=== PATIENT | male | born 1965 | race Caucasian/White ===

== ENCOUNTER 2016-07-08 14:14 | Emergency (ER) | payer OTHER ==
[2016-07-08] MEDS ORDERED: LIDOCAINE 1 % AMP 5 ML (SUTURES) SUBCUT STA (14:20)
[2016-07-08] MEDS ORDERED: TENIVAC IM ONE (14:20)
[2016-07-08 14:22] VITALS: BP 144/96; TEMP 97.4; BMI 27.2
--- NOTE | 2016-07-08 14:39 | ED.PDOC ---
General ED Provider: Dr. ELI MILTON Chief Complaint: Finger Laceration Stated Complaint: laceration Time Seen by Physician: 14:18 Mode of Arrival: Walk-In Information Source: Patient Primary Care Provider: MERT MAURICIO Nursing and Triage Documentation Reviewed and Agree: Yes Musculoskeletal Complaint Exam - Upper Extremity Complaint/Exam Location of Pain: Reports: Left (hand laceration base of the left thumb) Mechanism of Injury: Reports: Trauma Onset/Duration: 1 hr Symptoms Are: Still present Timing: Constant Episodes Lasting: Minutes Initial Severity: Mild Current Severity: Mild Location: Reports: Discrete Character: Reports: Aching Aggravating: Reports: None Alleviating: Reports: None Non-Orthopedic Risk Factors: Reports: None DVT Risk Factors: Reports: None Differential Diagnoses: Laceration Review of Systems - Review Of Systems Constitutional: Reports: No symptoms Eyes: Reports: No symptoms Ears, Nose, Mouth, Throat: Reports: No symptoms Respiratory: Reports: No symptoms Cardiac: Reports: No symptoms GI: Reports: No symptoms : Reports: No symptoms Musculoskeletal: Reports: No symptoms Skin: Reports: Other (0.4 cm laceration base of left thumb) Neurological: Reports: No symptoms Endocrine: Reports: No symptoms Hematologic/Lymphatic: Reports: No symptoms All Other Systems: Reviewed and Negative Past Medical History - Past Medical History Endocrine: Reports: None Cardiovascular: Reports: Hypertension Respiratory: Reports: None Hematological: Reports: None Gastrointestinal: Reports: None Genitourinary: Reports: None Neuro/Psych: Reports: None Musculoskeletal: Reports: None Cancer: Reports: None Other Pertinent Past Medical History: APPENDECTOMY AND HERNIN - Surgical History General Surgical History: Reports: Appendectomy, Hernia Repair - Family History Family History: Reports: Unknown - Social History Smoking Status: Former smoker Hx Substance Use: No Alcohol Screening: None - Immunizations Tetanus Shot up to Date: Yes (less than 1 year) Physical Exam - Physical Exam Appearance: Well-appearing, No pain distress, Well-nourished Eyes: LETICIA, EOMI, Conjunctiva clear ENT: Ears normal, Nose normal, Oropharynx normal Respiratory: Airway patent, Breath sounds clear, Breath sounds equal, Respirations nonlabored Cardiovascular: RRR, Pulses normal, No rub, No murmur GI/: Soft, Nontender, No masses, Bowel sounds normal, No Organomegaly Musculoskeletal: Normal strength, ROM intact, No edema, No calf tenderness Skin: Warm, Dry Neurological: Sensation intact, Motor intact, Reflexes intact, Cranial nerves intact, Alert, Oriented Psychiatric: Affect appropriate, Mood appropriate Procedures - Laceration/Wound Repair No standard instances Wound Description: Linear Wound Length (cm): 0.3 cm Wound Width: 2mm Wound Depth: 1mm Wound Explored: Clean Wound Irrigated: No Wound Prep: Saline, Betadine Anesthesia: Lidocaine Wound Debrided: Minimal Undermining: Minimal Suture Size and Type: 3 prolene Number of Sutures: 3 Number of Alex: 0 Sterile Dressing Applied?: No Splint Applied?: No Sling Applied?: No Critical Care Note - Critical Care Note Total Time (mins): 0 Course - Course Orders, Labs, Meds: Orders Category Date Time Status Lidocaine HCl/Pf [Lidocaine 1 % Amp 5 ml (Sutures)] MEDS 07/08/16 14:20 Discontinued 5 ml SUBCUT ONCE STA Medications Discontinued Medications Generic Name Dose Route Start Last Admin Trade Name Freq PRN Reason Stop Dose Admin Lidocaine HCl 5 ml 07/08/16 14:20 Lidocaine 1 % Amp 5 Ml (Sutures) SUBCUT 07/08/16 14:21 ONCE STA Vital Signs: Temp Pulse Resp BP Pulse Ox 07/08/16 14:15 97.4 F L 87 20 144/96 H 97 Departure - Departure Time of Disposition: 14:40 Disposition: HOME SELF-CARE Discharge Problem: Laceration of finger Instructions: Laceration (ED) Condition: Good Pt referred to PMD for follow-up: No Allergies/Adverse Reactions: Allergies diphenhydramine HCl [From Benadryl] Adverse Reaction (Verified 03/24/16 06:36) Home Medications: Ambulatory Orders Metoprolol Tartrate [Lopressor] 25 mg PO DAILY #60 tablet 05/29/15
== END 2016-07-08 15:03 | disposition home or self-care (01) ==
LOC: ED 14:14
DX: S61.012A Laceration without foreign body of left thumb without damage to nail, initial encounter (principal); W45.8XXA Other foreign body or object entering through skin, initial encounter
CPT/HCPCS: 99283

== ENCOUNTER 2016-09-11 07:52 | Emergency (ER) | payer OTHER ==
[2016-09-11 07:58] VITALS: BP 154/102; TEMP 97.4; BMI 26.1
[2016-09-11] MEDS ORDERED: ZESTRIL PO STA (08:06)
[2016-09-11 08:17] LABS: BASOPHILS % (AUTO) 0.4 % (0.0-3.0); EOSINOPHILS # (AUTO) 0.1 K/ul (0.0-0.7); EOSINOPHILS % (AUTO) 1.8 % (0.0-7.0); HEMATOCRIT 42.4 % (42.0-52.0); HEMOGLOBIN 14.8 g/dl (14.0-18.0); IMMATURE GRANULOCYTE % (AUTO) 0.2 % (0.0-5.0); LYMPHOCYTES # (AUTO) 1.6 K/uL (0.60-3.4); LYMPHOCYTES % (AUTO) 31.9 (10.0-50.0); MEAN CORPUSCULAR HEMOGLOBIN 29.7 pg (27.0-31.0); MEAN CORPUSCULAR HGB CONC 34.9 (31.8-35.4); MEAN CORPUSCULAR VOLUME 85.1 fl (80.0-94.0); MONOCYTES # (AUTO) 0.3 K/uL (0.4-2.0); MONOCYTES % (AUTO) 6.9 (0-10); NEUTROPHILS # (AUTO) 2.9 K/ul (2.0-6.9); NEUTROPHILS % (AUTO) 58.8; PLATELET COUNT 218 10^3/uL (140-440); RED BLOOD COUNT 4.98 10^6/ul (4.70-6.10); WHITE BLOOD COUNT 4.95 K/ul (4.2-10.2)
[2016-09-11 08:55] LABS: ALANINE AMINOTRANSFERASE 26 U/L (12-78); ALBUMIN/GLOBULIN RATIO 1.33; ALKALINE PHOSPHATASE 50 U/L (50-136); ANION GAP 11.9; ASPARTATE AMINO TRANSFERASE 22 U/L (15-37); BILIRUBIN,TOTAL 0.41 mg/dL (0.00-1.20); BLOOD UREA NITROGEN 12 mg/dL (7-18); BUN/CREATININE RATIO 12.76; CARBON DIOXIDE 24 mmol/L (21-32); CHLORIDE 107 mmol/L (98-107); CREATINE KINASE 147 U/L; CREATININE 0.94 mg/dL (0.60-1.10); GLUCOSE 98 mg/dL (70-100); POTASSIUM 3.9 mmol/L (3.5-5.1); SODIUM 139 mmol/L (136-145)
[2016-09-11 08:56] LABS: CREATINE KINASE MB 1.8 ng/ml (0.0-3.6)
--- NOTE | 2016-09-11 09:10 | ED.PDOC ---
General ED Provider: Dr. ELI MILTON Chief Complaint: Chest Pain Stated Complaint: chest pain Time Seen by Physician: 08:00 Mode of Arrival: Walk-In Information Source: Patient Exam Limitations: No limitations Primary Care Provider: MERT MAURICIO Nursing and Triage Documentation Reviewed and Agree: No Cardiovascular Complaint Exam - Chest Pain Complaint/Exam Onset: Sudden Duration: 1day ago Symptoms Are: Still present (subtle pain) Timing: Constant Length of Chest Pain Episodes: 1day Initial Severity: Moderate Current Severity: Mild Location: Reports: Midsternal Pain Radiates: Reports: None Character: Reports: Aching Aggravating: Reports: None Alleviating: Reports: None Associated Signs and Symptoms: Denies: Diaphoresis, Nausea, Vomiting, Fever, Palpitations, Cough, Hemoptysis, Back pain, Abdominal pain, Dizziness, Short of air, Calf pain, Calf swelling Related History: Reports: Similar episode History of Healthcare-Acquired Pneumonia: Reports: No AMI/ACS Risk Factors: Reports: Hypertension TAD Risk Factors: Reports: Hypertension Pulmonary Embolism Risk Factors: Reports: None Prior Care for this Complaint: No Recent Stress Test: No Recent Echo/LV Function: No JVD Present: No Subcutaneous Emphysema Present: No Diminshed Breath Sounds: No Reproducible Chest Wall Pain: No Bilateral Pulses Present: No Unequal Pulses Noted: No If Risk Factors for AMI/ACS Consider: EKG, Cardiac Enzymes Differential Diagnoses: Stable Angina Quality Indicators For Acute CA or Cardiac Chest Pain: EKG in 10min. Review of Systems - Review Of Systems Constitutional: Reports: No symptoms Eyes: Reports: No symptoms Ears, Nose, Mouth, Throat: Reports: No symptoms Respiratory: Reports: No symptoms Cardiac: Reports: Chest pain GI: Reports: No symptoms : Reports: No symptoms Musculoskeletal: Reports: No symptoms Skin: Reports: No symptoms Neurological: Reports: No symptoms Endocrine: Reports: No symptoms Hematologic/Lymphatic: Reports: No symptoms All Other Systems: Reviewed and Negative Past Medical History - Past Medical History Endocrine: Reports: None Cardiovascular: Reports: Hypertension Respiratory: Reports: None Hematological: Reports: None Gastrointestinal: Reports: None Genitourinary: Reports: None Neuro/Psych: Reports: None Musculoskeletal: Reports: None Cancer: Reports: None Other Pertinent Past Medical History: APPENDECTOMY AND HERNIN - Surgical History General Surgical History: Reports: Appendectomy, Hernia Repair - Family History Family History: Reports: Unknown - Social History Smoking Status: Former smoker Hx Substance Use: No Alcohol Screening: None Physical Exam - Physical Exam Appearance: Well-appearing, No pain distress, Well-nourished Eyes: LETICIA, EOMI, Conjunctiva clear ENT: Ears normal, Nose normal, Oropharynx normal Respiratory: Airway patent, Breath sounds clear, Breath sounds equal, Respirations nonlabored Cardiovascular: RRR, Pulses normal, No rub, No murmur GI/: Soft, Nontender, No masses, Bowel sounds normal, No Organomegaly Musculoskeletal: Normal strength, ROM intact, No edema, No calf tenderness Skin: Warm, Dry, Normal color Neurological: Sensation intact, Motor intact, Reflexes intact, Cranial nerves intact, Alert, Oriented Psychiatric: Affect appropriate, Mood appropriate 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 Rhythm: Sinus Ectopy: None - EKG Interpretation Rate: Normal Rhythm: Sinus Ectopy: None [place]: NL ST Segment: Normal Physician Notification - Case Discussed Physician Notified: PMD Time of Notification: 10:23 (SEND TO OFFICE ) Critical Care Note - Critical Care Note Total Time (mins): 0 Course - Course Hematology/Chemistry: 09/11/16 08:10 09/11/16 08:10 Orders, Labs, Meds: Lab Review 09/11/16 08:10 WBC 4.95 RBC 4.98 Hgb 14.8 Hct 42.4 MCV 85.1 MCH 29.7 MCHC 34.9 RDW Coeff of Zayra 12.7 Plt Count 218 Immature Gran % (Auto) 0.2 Neut % (Auto) 58.8 Lymph % (Auto) 31.9 [place] % (Auto) 6.9 Eos % (Auto) 1.8 Baso % (Auto) 0.4 Immature Gran # (Auto) 0.0 Neut # 2.9 Lymph # 1.6 [place] # 0.3 L Eos # 0.1 Baso # 0.0 Sodium 139 Potassium 3.9 Chloride 107 Carbon Dioxide 24 Anion Gap 11.9 BUN 12 Creatinine 0.94 Estimated GFR (MDRD) 85.00 BUN/Creatinine Ratio 12.76 Glucose 98 Calcium 9.0 Total Bilirubin 0.41 AST 22 ALT 26 Alkaline Phosphatase 50 Total Creatine Kinase 147 CK-MB (CK-2) 1.8 CK-MB (CK-2) % 1.25953 Troponin I < 0.0100 Total Protein 7.0 Albumin 4.0 Globulin 3.0 Albumin/Globulin Ratio 1.33 Orders Category Date Time Status EKG-(ED ONLY) Stat CARDIO 09/11/16 08:02 Completed EKG-(ED ONLY) Stat CARDIO 09/11/16 09:15 Completed NPO REMINDER: IMAGING ONCE CARE 09/11/16 08:02 Completed ED IV/MEDIPORT/POWERPORT .ONCE EMERGENCY 09/11/16 08:01 Active CBC W/ AUTO DIFF Stat LAB 09/11/16 08:10 Completed COMPREHENSIVE METABOLIC PANEL Stat LAB 09/11/16 08:10 Completed CREATINE KINASE Stat LAB 09/11/16 08:10 Completed TROPONIN I Stat LAB 09/11/16 08:10 Completed 0.9 % Sodium Chloride [Saline Flush] MEDS 09/11/16 08:01 Active 1 syr IVF PRN PRN Lisinopril [Zestril] MEDS 09/11/16 08:06 Discontinued 20 mg PO ONCE STA CT CHEST PE PROTOCOL Stat RADS 09/11/16 08:01 Ordered Medications Generic Name Dose Route Start Last Admin Trade Name Freq PRN Reason Stop Dose Admin Sodium Chloride 1 syr 09/11/16 08:01 09/11/16 08:31 Saline Flush IVF 1 syr PRN PRN Administration To flush IV Discontinued Medications Generic Name Dose Route Start Last Admin Trade Name Freq PRN Reason Stop Dose Admin Lisinopril 20 mg 09/11/16 08:06 09/11/16 09:10 Zestril PO 09/11/16 08:07 Not Given ONCE STA Vital Signs: Temp Pulse Resp BP Pulse Ox 09/11/16 07:53 97.4 F L 71 20 154/102 H 98 JESSIE Risk Score JESSIE Risk Score: Risk Score Odds of by 30D 0 0.1 (0.1-0.2) 1 0.3 (0.2-0.3) 2 0.4 (0.3-0.5) 3 0.7 (0.6-0.9) 4 1.2 (1.0-1.5) 5 2.2 (1.9-2.6) 6 3.0 (2.5-3.6) 7 4.8 (3.8-6.1) Departure - Departure Time of Disposition: 09:13 Disposition: HOME SELF-CARE Discharge Problem: Chest pain Condition: Good Pt referred to PMD for follow-up: Yes Allergies/Adverse Reactions: Allergies diphenhydramine HCl [From Benadryl] Adverse Reaction (Verified 09/11/16 08:00) Home Medications: Ambulatory Orders Metoprolol Tartrate [Lopressor] 25 mg PO DAILY #60 tablet 05/29/15
--- NOTE | 2016-09-11 10:06 | CT ---
EXAM: CTA CHEST (PE PROTOCOL) HISTORY: Pleuritic chest pain TECHNIQUE: CTA with intravenous contrast. Multiplanar images were provided with 3-D reconstruction s. 125 mL Omnipaque. COMPARISON: None FINDINGS: No pulmonary arterial filling defect. Thoracic aorta within normal limits. Normal heart size with no pericardial effusion. A few nonspecific sub-centimeter hilar lymph nodes are noted. The lungs reveal no consolidated pneumonia. There is no vascular congestion, central interstitial e montse, pneumothorax or pleural fluid. No pleural thickening is seen. The bones reveal no acute abnormality. IMPRESSION: 1. No pulmonary arterial thromboembolism. 2. No consolidated pneumonia or vascular congestion. No pleural fluid or thickening.
== END 2016-09-11 10:45 | disposition home or self-care (01) ==
LOC: ED 07:52
DX: R07.9 Chest pain, unspecified (principal); I10 Essential (primary) hypertension; Z79.899 Other long term (current) drug therapy; R06.02 Shortness of breath
CPT/HCPCS: 36415; 80053; 82550; 82553; 84484; 85025; 93005; 93010; 99283

== ENCOUNTER 2016-09-11 14:40 | Outpatient (CLI) | payer OTHER ==
[2016-09-11 07:58] VITALS: BMI 26.1
--- NOTE | 2016-09-12 12:24 | STRESSECHO ---
Date of Test: 09/11/16 Reason for Exam: CHEST PAIN, SOB, HTN Ordering Physician: MERT MAURICIO Current Medications: LOPRESSOR Physical Findings: S1, S2, NO S3 Resting EKG: SINUS RHYTHM, NO ACUTE CHANGES Target Heart Rate: 144/170 STAGE MPH/GRADE HEART RATE BPM BLOOD PRESSURE mmhg RHYTHM S-T SEGMENT +/- UP DOWN SYMPTOMS,COMMENTS At Rest 76 132/84 SR X NONE 1 1.7/10% 100 146/90 SR X NONE 2 2.5/12% 110 150/99 SR X NONE 3 3.4/14% 4 4.2/16% 5 5.0/18% Immediately after 128 168/90 SR X FATIGUE Durations of Exercise: 8:00 Maximum Heart Rate Reached: 128 Reason for Termination: FATIGUE 4 MIN POST EXERCISE: HR, 80 BPM BP 138/96 MMHG, SR, +/- INTERPRETATION: 98% OXYGEN SATURATION ON ROOM AIR WITH EXERCISE METS 10.1 1. TEST NEGATIVE FOR ISCHEMIC ST-T WAVE CHANGES 2. NO CHEST PAIN OR CHEST DISCOMFORT 3. NO ARRHYTHMIAS 4. BLOOD PRESSURE RESPONSE: BORDERLINE HYPERTENSION WITH EXERCISE NORMAL LEFT VENTRICULAR CONTRACTILITY--RESTING AND POST EXERCISE MTDD
--- NOTE | 2016-09-12 12:27 | ECHOSTRESS ---
Date of Exam: 09/11/16 Ordering Physician: MERT MAURICIO Reason for Echo: CHEST PAIN, STRESS TEST--NO ISCHEMIA M-Mode Normal Adult Results LV Dimensions Normal Adult Results AoV Opening excursions >1.6 LVEDD-base- 3.5-5.8 Ao root dimensions 2.0-3.7 LVESD-base- 3.1-4.6 L. Atrium dimensions 1.9-3.8 Post. Wall thickness 0.8-1.1 IV septum (thickness) 0.7-1.2 Post. Wall excursion 0.72-1.3 Septal motion Systolic motion R. Ventricular cavity 1.5-2.0 LVEF 60% Paradoxical septal wall motion 2-D: NORMAL LEFT VENTRICULAR CONTRACTILITY--RESTING AND POST EXERCISE M-MODE: MV: AV: TV: PV: CHAMBER SIZE: WALL MOTION: NORMAL LEFT VENTRICULAR CONTRACTILITY--RESTING AND POST EXERCISE PERICARDIUM: INTERPRETATION: 1. NORMAL LEFT VENTRICULAR CONTRACTILITY--RESTING AND POST EXERCISE MTDD
--- NOTE | 2016-09-12 12:56 | ECHO2D ---
Date of Exam: 09/11/16 Ordering Physician: MERT MAURICIO Reason for Echo: CHEST PAIN, SOB, HTN M-Mode Normal Adult Results LV Dimensions Normal Adult Results AoV Opening excursions >1.6 >1.6 LVEDD-base- 3.5-5.8 4.5 Ao root dimensions 2.0-3.7 3.3 LVESD-base- 3.1-4.6 L. Atrium dimensions 1.9-3.8 3.8 Post. Wall thickness 0.8-1.1 1.1 IV septum (thickness) 0.7-1.2 1.2 Post. Wall excursion 0.72-1.3 NORMAL Septal motion NORMAL Systolic motion R. Ventricular cavity 1.5-2.0 NORMAL LVEF 60% 53% Paradoxical septal wall motion NORMAL 2-D : 2-D M Mode Echocardiogram was performed using apical four chamber and left parasternal long and short axis views. Mitral, tricuspid and aortic valves appear to be normal. Contractility of the left ventricle seems to be normal, so is the cavity size. Left atrial cavity size and aortic root appear to be normal. There is no pericardial effusion. There is no thrombus noted in the left ventricular or left aortic cavity. No mitral valve prolapse noted. M-MODE: MV: NORMAL AV: NORMAL TV: NORMAL PV: CHAMBER SIZE: NORMAL WALL MOTION: NORMAL PERICARDIUM: NORMAL INTERPRETATION: 1. BORDERLINE LEFT VENTRICULAR HYPERTROPHY 2. NORMAL VALVES 3. NORMAL LEFT VENTRICULAR CONTRACTILITY MTDD
== END 2016-09-11 14:41 | disposition home or self-care (01) ==
LOC: CAR 14:40
PROVIDERS: ATTEND Internal Medicine
DX: R07.9 Chest pain, unspecified (principal); R06.02 Shortness of breath

== ENCOUNTER 2018-03-04 14:38 | Emergency (ER) | payer OTHER ==
[2018-03-04 14:43] VITALS: BP 148/95; TEMP 97.3; BMI 27.3
[2018-03-04] MEDS ORDERED: LIDOCAINE HCL 1% SDV SUBCUT STA (15:02)
--- NOTE | 2018-03-04 15:03 | ED.PDOC ---
General ED Provider: Dr. MERT CARMONA Chief Complaint: Laceration Stated Complaint: Patient states he Cut his Rt Thigh with a razor knife while cutting co-base. Time Seen by Physician: 14:50 Mode of Arrival: Walk-In Information Source: Patient Exam Limitations: No limitations Primary Care Provider: MERT MAURICIO Nursing and Triage Documentation Reviewed and Agree: Yes Does patient meet sepsis criteria?: No System Inflammatory Response Syndrome: Not Applicable Sepsis Protocol: For patient's 13 years and over: Temp is 96.8 and below OR 101 and greater Pulse >90 BPM Resp >20/minute Acutely Altered Mental Status Are patient's symptoms suggestive of a new infection, such as: -Pneumonia -Skin, Soft Tissue -Endocarditis -UTI -Bone, Joint Infection -Implantable Device -Acute Abdominal Infection -Wound Infection -Meningitis -Blood Stream Catheter Infection -Unknown Trauma/Injury Complaint Exam - Trauma Complaint/Exam Location of Pain or Injury: Reports: RLE (Rt Anterior Thigh) Mechanism of Injury: Reports: Incised Onset/Duration: 1 hr Symptoms Are: Still present Timing of Treatment: Immediate Initial Severity: Mild Current Severity: Mild Character: Reports: Burning, Sharp Aggravating: Reports: Weight-bearing Alleviating: Reports: None Associated Signs and Symptoms: Reports: Bleeding. Denies: LOC, Confusion, Memory loss, Lethargy, Vomiting, Bruising, Swelling, Extremity disuse, Painful respiration, Hoarseness, Dysphagia, Hemoptysis, Significant blood loss Related History: Denies: Similar episode Penetrating Injury Risk Factors: Reports: None Trauma Findings: Absent: Weak pulses ( 2 cm laceration rt thigh) Skin Findings: Present: Tenderness, Laceration Review of Systems - Review Of Systems Constitutional: Reports: No symptoms Eyes: Reports: No symptoms Ears, Nose, Mouth, Throat: Reports: No symptoms Respiratory: Reports: No symptoms Cardiac: Reports: No symptoms GI: Reports: No symptoms : Reports: No symptoms Musculoskeletal: Reports: No symptoms Skin: Reports: No symptoms, Other (laceraton rt thigh) Neurological: Reports: No symptoms Endocrine: Reports: No symptoms Hematologic/Lymphatic: Reports: No symptoms All Other Systems: Reviewed and Negative Past Medical History - Past Medical History Endocrine: Reports: None Cardiovascular: Reports: Hypertension Respiratory: Reports: None Hematological: Reports: None Gastrointestinal: Reports: None Genitourinary: Reports: None Neuro/Psych: Reports: None Musculoskeletal: Reports: None Cancer: Reports: None Other Pertinent Past Medical History: APPENDECTOMY AND HERNIN - Surgical History General Surgical History: Reports: Appendectomy, Hernia Repair - Family History Family History: Reports: Unknown - Social History Smoking Status: Former smoker Hx Substance Use: No Alcohol Screening: None Physical Exam - Physical Exam Appearance: Well-appearing, No pain distress, Well-nourished Eyes: LETICIA, EOMI, Conjunctiva clear ENT: Ears normal, Nose normal, Oropharynx normal Respiratory: Airway patent, Breath sounds clear, Breath sounds equal, Respirations nonlabored Cardiovascular: RRR, Pulses normal, No rub, No murmur GI/: Soft, Nontender, No masses, Bowel sounds normal, No Organomegaly Musculoskeletal: Normal strength, ROM intact, No edema, No calf tenderness Skin: Warm (laceraton rt thigh, bleeding controlled), Dry, Normal color Neurological: Sensation intact, Motor intact, Reflexes intact, Cranial nerves intact, Alert, Oriented Psychiatric: Affect appropriate, Mood appropriate Procedures - Laceration/Wound Repair Rt Thigh Wound Description: Linear Wound Length (cm): 2 Wound Width: 5mm Wound Depth: subcut Wound Explored: Clean Wound Irrigated: Yes Wound Prep: Hibiclens, Betadine Anesthesia: Lidocaine Wound Repaired With: Sutures Suture Size and Type: 3-0 nylon Number of Sutures: 2 Layer Closure?: No Sterile Dressing Applied?: Yes Critical Care Note - Critical Care Note Total Time (mins): 30 Course - Course Orders, Labs, Meds: Orders Category Date Time Status Lidocaine HCl/Pf [Lidocaine HCl 1% Sdv] MEDS 03/04/18 15:02 Discontinued 5 ml SUBCUT ONCE STA Medications Discontinued Medications Generic Name Dose Route Start Last Admin Trade Name Lc PRN Reason Stop Dose Admin Lidocaine HCl 5 ml 03/04/18 15:02 03/04/18 15:23 Lidocaine Hcl 1% Sdv SUBCUT 03/04/18 15:03 5 ml ONCE STA Administration Vital Signs: Temp Pulse Resp BP Pulse Ox 03/04/18 14:38 97.3 F L 87 16 148/95 H 97 Departure - Departure Time of Disposition: 15:20 Disposition: HOME SELF-CARE Discharge Problem: Laceration of thigh without complication Instructions: Care For Your Stitches (ED), Laceration (ED) Condition: Good Pt referred to PMD for follow-up: Yes (1 week) IPMP verified?: No Additional Instructions: Off work today Wound care Take tylenol for pain as needed Sutures out 7-10 days Prescriptions: Cephalexin [Keflex] 500 mg PO BID #14 capsule Allergies/Adverse Reactions: Allergies diphenhydramine HCl [From Benadryl] Adverse Reaction (Verified 09/11/16 08:00) hydromorphone [From Dilaudid] Adverse Reaction (Verified 03/04/18 14:43) Home Medications: Ambulatory Orders Cephalexin [Keflex] 500 mg PO BID #14 capsule 03/04/18 Disposition Discussed With: Patient
== END 2018-03-04 15:25 | disposition home or self-care (01) ==
LOC: ED 14:38
DX: S71.111A Laceration without foreign body, right thigh, initial encounter (principal); W26.0XXA Contact with knife, initial encounter
CPT/HCPCS: 99283

== ENCOUNTER 2018-05-10 11:55 | Outpatient (CLI) | payer OTHER | END 2018-05-10 11:56 | disposition home or self-care (01) | LOC: LAB 11:55 | PROVIDERS: ATTEND Family Medicine | DX: I10 Essential (primary) hypertension (principal) | CPT/HCPCS: 36415; 80053; 81001; 85025 ==

== ENCOUNTER 2018-06-07 08:05 | Outpatient (CLI) | payer OTHER ==
--- NOTE | 2018-06-07 09:37 | DI ---
EXAM: Two views of the chest. History: Cough. Findings: Heart size is within normal limits. No focal consolidation. No appreciable pleural fluid and no pneumothorax. No acute osseous abnormalities. Impression: No acute cardiopulmonary process
== END 2018-06-07 08:06 | disposition home or self-care (01) ==
LOC: RAD 08:05
PROVIDERS: ATTEND Internal Medicine
DX: R05 Cough (principal)